=== PATIENT | male | born 1970 | race Caucasian/White ===

== ENCOUNTER 2020-11-08 08:16 | Emergency (ER) | payer OTHER, SELFPAY ==
--- NOTE | 2020-11-08 | XRR_ITS ---
[facility] Final Radiology Report Call: [phone] assistance Online chat: [email or web address] Name: DANNI AGUILERA Age: 49Years M Date: 11/08/2020 SSN: -- : 1970 Study: XR CHEST 2 VIEWS Requesting Physician: Becca Smith Images: 2 Add?l Studies: Provided Clinical History: PROCEDURE INFORMATION: Exam: XR Chest Exam date and time: 11/08/2020 9:07 AM Age: 49 years old Clinical indication: Other: Irregular heart rhythem; Patient HX: C/O of irregular heart rhythms. HX of afib TECHNIQUE: Imaging protocol: XR of the chest. Views: Frontal and lateral upright, 2 views. COMPARISON: No relevant prior studies available. FINDINGS: Lungs: The lungs are clear bilaterally. The pulmonary vasculature is normal. Pleural spaces: No pleural effusion. No pneumothorax. Heart/Mediastinum: The heart is normal in size and contour. Bones/joints: No acute chest wall abnormality identified. IMPRESSION: No acute cardiopulmonary abnormality identified. Thank you for allowing us to participate in the care of your patient. Dictated and Authenticated by: Lyle Norman MD 11/08/2020 1:29 PM Central Time ([place] & [place]) [facility]
--- NOTE | 2020-11-08 08:28 | ECG_ITS ---
[facility] Test Date: 2020-11-08 Pat Name: Tony Malone Department: Room: Gender: Male Charger Tester: : 1970 Requested By: Becca Smith Order Number: [id number] Luz MD: William Dias M.D. Measurements Intervals [place] Rate: 70 P: 56 WY: 199 QRS: -49 QRSD: 119 T: 37 QT: 402 QTc: 434 Interpretive Statements SINUS RHYTHM WITH SINUS ARRHYTHMIA LEFT ANTERIOR FASCICULAR BLOCK [QRS AXIS <= -45, QR IN I, RS IN II] No previous ECG available for comparison Electronically Signed On 11-08-2020 18:09:50 CDT by William Dias M.D. [id number] f
[2020-11-08 08:56] VITALS: BP 136/94; PULSE 60; RESP 16; TEMP 36.6; O2SAT 95; BMI 29.9
[2020-11-08 09:02] VITALS: BMI 29.1
--- NOTE | 2020-11-08 10:28 | ECG_ITS ---
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 Measurements Intervals [place] Rate: 71 P: 54 MO: 205 QRS: -52 QRSD: 120 T: 30 QT: 419 QTc: 458 Interpretive Statements SINUS RHYTHM WITH OCCASIONAL ECTOPIC PREMATURE COMPLEXES LEFT ANTERIOR FASCICULAR BLOCK [QRS AXIS <= -45, QR IN I, RS IN II] No previous ECG available for comparison Electronically Signed On 11-08-2020 18:12:13 CDT by William Dias M.D. [id number] f
[2020-11-08 11:00] VITALS: BP 123/94; PULSE 71; RESP 16; O2SAT 97
--- NOTE | 2020-11-08 11:16 | PC.NURSE ---
Addendum entered by Janna Browning RN 11/08/20 11:17: arrived to room at 1115. Original Note: pt arrived to room at 1015
[2020-11-08 11:20] LABS: Basophils # 0.1 10^3/uL (0.0-0.1); Basophils % 0.8 %; Eosinophils # 0.2 10^3/uL (0.0-0.8); Eosinophils % 3.3 %; Hematocrit 45.1 % (42.0-52.0); Lymphocytes # 2.3 10^3/uL (0.8-4.8); Mean Corpuscular HGB Conc 33.3 g/dL (30.0-36.0); Mean Corpuscular Hemoglobin 28.8 pg (28.0-34.0); Mean Corpuscular Volume 86.7 fL (80-94); Mean Platelet Volume 10.2 fL (7.4-10.4); Monocytes # 0.4 10^3/uL (0.2-0.9); Monocytes % 5.6 %; Nucleated Red Blood Cells % 0 %; Platelet Count 206 10^3/cmm (130-400); Red Cell Distribution Width 11.6 % (12.1-15.1); White Blood Count 6.3 10^3/uL (4.0-10.0)
--- NOTE | 2020-11-08 11:20 | W.ED.ARRPALP ---
HPI - Arrhythmia/Palpitations General: Chief Complaint: Arrhythmia/Palpitations Stated Complaint: Irregular Heart Rhythms Time Seen by Provider: 11/08/20 11:10 Source: patient Mode of arrival: ambulatory Limitations: no limitations History of Present Illness: HPI narrative: Patient is a 49-year-old male with a long history of atrial fibrillation and hypertension for which he takes losartan, diltiazem, Procardia, and an aspirin. He presents to the emergency department with a sensation of his heart fluttering. Started yesterday intermittently and and it became more persistent overnight. Symptoms have subsided a little now. He states that this is unusual for him and he wants to have it evaluated. He denies any chest pain, dizziness, lightheadedness, shortness of breath, leg swelling. He is not taking any rdob-wuw-ghcakvr medications. MD complaint: palpitations and atrial fibrillation Onset (ago): day(s) (1) Duration: intermittent Severity: mild Context: occurred during rest Arrhythmia history: atrial fibrillation Associated symptoms: Deny anxiety, cough, diaphoresis, muscle cramps, nausea, paresthesias, pre-syncope, sense of impending doom, short of breath, syncope or vomiting Review of Systems General: Reports: 10 or more systems reviewed and unremarkable except in HPI and below Const: Denies: diaphoresis Card: Denies: syncope or pre-syncope GI: Denies: nausea or vomiting Musc: Denies: muscle cramps Psych: Denies: anxiety Physical Exam Const: COMMON NORMALS: no acute distress, average body habitus, patient oriented x3, no limitations, healthy appearing, alert and well nourished HENMT: COMMON NORMALS: normocephalic, atraumatic and moist oral mucous membranes HEAD & SCALP: normocephalic and atraumatic Neck/C-Spine: COMMON NORMALS: no meningeal signs and no JVD Chest: COMMONS NORMALS: normal inspection of the chest and normal palpation of entire chest wall Resp: COMMON NORMALS: normal respiratory effort, No retractions, No use of accessory muscles, clear to auscultation bilaterally and percussion normal AUSCULTATION: clear to auscultation bilaterally PERCUSSION: percussion normal Cardio: COMMON NORMALS: no JVD, regular rate, regular rhythm, S1 normal heart sound present, S2 normal heart sound present, No gallops present (Cardio), No clicks present (Cardio), No murmurs present (Cardio), No rub (Cardio) and Peripheral pulses 2+ throughout RATE: regular rate RHYTHM: regular rhythm HEART SOUNDS: S1 normal heart sound present and S2 normal heart sound present PERIPHERAL PULSES: Peripheral pulses 2+ throughout GI: COMMON NORMALS: Normal to inspection, nondistended, normoactive bowel sounds present, Soft to palpation, non-tender, No hepatosplenomegaly present, no masses and no bruits PALPATION: Yes Soft to palpation and Yes No hepatosplenomegaly present Extremity: COMMON NORMALS: normal to inspection, full ROM, capillary refill normal, no calf tenderness and no pedal edema Neuro: COMMON NORMALS: patient oriented x3 SENSORIUM/ORIENTATION: Yes alert MENINGEAL SIGNS: Yes no meningeal signs Skin: COMMON NORMALS: no rashes or lesions noted, no wounds, turgor normal, no jaundice, no petechiae and no mottling GENERAL SKIN EXAM: no rashes or lesions noted and turgor normal Course Reevaluation(s): Reevaluation #1: Discussed his lab and imaging findings with him. Negative for acute findings. TSH normal. We will set him up with a 21-day event monitor and he will follow up with his primary care provider. He voiced understanding and is in agreement with the plan. Time: 12:38 Vital Signs: Vital signs: Vital Signs Temperature 98 F 11/08/20 08:56 Pulse Rate 73 11/08/20 12:00 Respiratory Rate 16 11/08/20 12:00 Blood Pressure 146/104 11/08/20 12:00 Pulse Oximetry 97 11/08/20 12:00 MDM - Arrhythmia/Palpitations MDM Narrative: Medical decision making narrative: 49-year-old male with a history of atrial fibrillation and hypertension. He presents to the emergency department with palpitations that started yesterday. Persisted until today, however evaluation in the emergency department is unremarkable. He is discharged home with a 21-day event monitor to see if there is need for intervention. Lab Data: Labs: Lab Results 11/08/20 11/08/20 11/08/20 Range/Units 11:12 11:12 11:12 WBC 6.3 (4.0-10.0) 10^3/ uL RBC 5.20 (4.1-5.3) 10^6/u L Hgb 15.0 (11.7-16.6) g/dL Hct 45.1 (42.0-52.0) % MCV 86.7 (80-94) fL MCH 28.8 (28.0-34.0) pg MCHC 33.3 (30.0-36.0) g/dL RDW 11.6 L (12.1-15.1) % Plt Count 206 (130-400) 10^3/c mm MPV 10.2 (7.4-10.4) fL Neut % (Auto) 54.0 % Lymph % (Auto) 36.0 % Monroe % (Auto) 5.6 % Eos % (Auto) 3.3 % Baso % (Auto) 0.8 % Neut # (Auto) 3.40 (1.8-7.7) 10^3/u L Lymph # (Auto) 2.3 (0.8-4.8) 10^3/u L Monroe # (Auto) 0.4 (0.2-0.9) 10^3/u L Eos # (Auto) 0.2 (0.0-0.8) 10^3/u L Baso # (Auto) 0.1 (0.0-0.1) 10^3/u L Nucleated RBC % (a uto) 0 % Nucleated RBCs # 0.0 /100WBC Sodium 135 L (136-145) mmol/L Potassium 4.1 (3.5-5.1) mmol/L Chloride 98 (98-107) mmol/L Carbon Dioxide 29 (22-29) mmol/L Anion Gap 12.1 (5-19) BUN 17 (6-20) mg/dL Creatinine 0.9 (0.7-1.2) mg/dL GFR Calculation 90.1 (90-130) mL/min Glucose 246 H (65-115) mg/dL Calculated Osmolal ity 290 (285-295) mOsm/k g Calcium 9.0 (8.5-10.5) mg/dL Magnesium 1.9 (1.7-2.3) mg/dL Total Bilirubin 0.5 (0.15-1.2) mg/dL AST 24 (0-40) U/L ALT 54 H (0-41) U/L Alkaline Phosphata se 58 (40-130) IU/L Troponin T Baselin e 8 (0-15) ng/L NT-Pro-B Natriuret Pep (0-125) pg/mL Total Protein 7.5 (6.6-8.7) g/dL Albumin 4.4 (3.5-5.2) g/dL Globulin 3.1 (1.3-4.6) g/dL TSH 0.88 (0.27-4.20) uIU/ mL 11/08/20 Range/Units 11:12 WBC (4.0-10.0) 10^3/ uL RBC (4.1-5.3) 10^6/u L Hgb (11.7-16.6) g/dL Hct (42.0-52.0) % MCV (80-94) fL MCH (28.0-34.0) pg MCHC (30.0-36.0) g/dL RDW (12.1-15.1) % Plt Count (130-400) 10^3/c mm MPV (7.4-10.4) fL Neut % (Auto) % Lymph % (Auto) % Monroe % (Auto) % Eos % (Auto) % Baso % (Auto) % Neut # (Auto) (1.8-7.7) 10^3/u L Lymph # (Auto) (0.8-4.8) 10^3/u L Monroe # (Auto) (0.2-0.9) 10^3/u L Eos # (Auto) (0.0-0.8) 10^3/u L Baso # (Auto) (0.0-0.1) 10^3/u L Nucleated RBC % (a uto) % Nucleated RBCs # /100WBC Sodium (136-145) mmol/L Potassium (3.5-5.1) mmol/L Chloride (98-107) mmol/L Carbon Dioxide (22-29) mmol/L Anion Gap (5-19) BUN (6-20) mg/dL Creatinine (0.7-1.2) mg/dL GFR Calculation (90-130) mL/min Glucose (65-115) mg/dL Calculated Osmolal ity (285-295) mOsm/k g Calcium (8.5-10.5) mg/dL Magnesium (1.7-2.3) mg/dL Total Bilirubin (0.15-1.2) mg/dL AST (0-40) U/L ALT (0-41) U/L Alkaline Phosphata se (40-130) IU/L Troponin T Baselin e (0-15) ng/L NT-Pro-B Natriuret Pep 48 (0-125) pg/mL Total Protein (6.6-8.7) g/dL Albumin (3.5-5.2) g/dL Globulin (1.3-4.6) g/dL TSH (0.27-4.20) uIU/ mL Imaging Data^: CXR: Attestation: I personally reviewed and interpreted this imaging study as follows: My impression: No acute findings. EKG Data^: EKG 1: Attestation: I personally reviewed and interpreted this EKG as follows: EKG interpretation date: 11/08/20 EKG interpretation time: 08:45 Prior EKG tracings: not available for review Interpretation: Sinus rhythm with sinus arrhythmia. Heart rates 70 bpm. Left anterior fascicular block. No ST changes. Discharge Plan Discharge Patient Disposition: Home Clinical Impression: Palpitations Condition: Stable Prescriptions: Continued losartan 50 mg tablet 50 mg PO BEDTIME RF: 0 sumatriptan succinate 100 mg tablet 100 mg PO PRN RF: 0 aspirin 81 mg Tablet,Delayed Release (Dr/Ec) 81 mg PO BEDTIME RF: 0 diltiazem HCl 120 mg capsule,extended release 24hr 120 mg PO BEDTIME RF: 0 Claritin 10 mg Tablet 10 mg PO BEDTIME RF: 0 Collagen Powder See Rx Instructions .ROUTE .COMPLEX RF: 0 Discharge Orders: Discharge ED (Routine); Ordered 11/08/20 Ordered By: Estefani Downey Referrals: Julio César Peguero MD [Physician] - 1-3 days Discharge Diet: Usual diet Discharge Activity: Increase activity as tolerated Patient Instructions: Palpitations (ED), Opioid Safety Activity Restrictions/Additional Instructions: Return for any new or worsening symptoms. Follow-up with your primary care provider within 3 days. You will be contacted to schedule an appointment to obtain the event monitor that monitors your heart rates. This may give us information to help manage your symptoms if there are significant abnormalities in your heart rhythm. Coding Level of Care Code ED Cisco Consultant for Chg Fwd Exam Comprehensive
[2020-11-08 12:00] VITALS: BP 146/104; PULSE 73; RESP 16; O2SAT 97
[2020-11-08 12:01] LABS: NT Pro B Type Natriuretic Pept 48 pg/mL (0-125)
[2020-11-08 12:02] LABS: Alanine Aminotransferase 54 U/L (0-41); Albumin Level 4.4 g/dL (3.5-5.2); Alkaline Phosphatase 58 IU/L (40-130); Anion Gap 12.1 (5-19); Aspartate Amino Transferase 24 U/L (0-40); Blood Urea Nitrogen 17 mg/dL (6-20); Carbon Dioxide 29 mmol/L (22-29); Chloride 98 mmol/L (98-107); Globulin 3.1 g/dL (1.3-4.6); Glomerular Filtration Rate 90.1 mL/min (90-130); Glucose 246 mg/dL (65-115); Magnesium 1.9 mg/dL (1.7-2.3); Osmolality Calculated 290 mOsm/kg (285-295); Potassium 4.1 mmol/L (3.5-5.1); Sodium 135 mmol/L (136-145); Thyroid Stimulating Hormone 0.88 uIU/mL (0.27-4.20); Total Bilirubin 0.5 mg/dL (0.15-1.2); Total Protein 7.5 g/dL (6.6-8.7)
[2020-11-08 12:25] LABS: Troponin(5th) Baseline 8 ng/L (0-15)
--- NOTE | 2020-11-08 15:25 | DCPLANNER ---
Addendum entered by Iris Warren 11/30/20 14:52: Patient had a follow up appointment scheduled for 11.23.20 with heart care for a 21 day event monitor - patient did attend appointment. Original Note: blood bank manager was asked to schedule a 21 day event monitor for patient. blood bank manager faxed order to heart care, will call for appointment information.
== END 2020-11-08 13:04 | disposition home or self-care (01) ==
PROVIDERS: Registered Nurse; Emergency Provider Family Medicine
DX: R00.2 Palpitations (principal); Z79.82 Long term (current) use of aspirin
CPT/HCPCS: 71046; 80053; 83735; 83880; 84443; 84484; 85025; 93005; 99284

== ENCOUNTER 2021-06-08 15:41 | Outpatient (CLI) | payer OTHER, SELFPAY ==
--- NOTE | 2021-06-08 15:59 | XR_ITS ---
WS: [id number] XR chest 2V* [id number] REASON FOR EXAM: COVID-19 INFECTION, 2 WEEKS AGO FINDINGS: Compared to the previous examination of 11/08/2020, there are linear and reticular opacities in the m id and lower left lung lung. Similar findings are seen on the right. There are also patchy areas of hazy density seen in the mid lungs bilaterally. No pleural effusions. Bony thorax intact. XR/XR chest 2V* [id number] IMPRESSION: Lung opacities of unknown chronicity. Findings are compatible with subacute pne umonitis.
== END 2021-06-08 15:42 | disposition home or self-care (01) ==
PROVIDERS: PCP Family Medicine; Visit Provider Family Medicine
DX: U07.1 COVID-19 (principal)
CPT/HCPCS: 71046

== ENCOUNTER 2022-02-24 21:16 | Emergency (ER) | payer OTHER, SELFPAY ==
[2022-02-24 21:44] VITALS: BP 120/75; PULSE 72; RESP 15; TEMP 36.8; O2SAT 95; BMI 27.0
[2022-02-24 22:27] VITALS: BP 125/86; PULSE 71; RESP 16; O2SAT 96
--- NOTE | 2022-02-24 22:34 | XRR_ITS ---
PROCEDURE INFORMATION: Exam: XR Left Ribs with PA Chest Exam date and time: 02/24/2022 10:48 PM Age: 51 years old Clinical indication: Injury or trauma; Fall; Rib area, left side; Blunt trauma; Additional info: Fall onto left anterior chest wall TECHNIQUE: Imaging protocol: Radiologic exam of the Left ribs with PA chest. Views: 3 views COMPARISON: CR XR chest 2V* [id number] 06/08/2021 4:00 PM FINDINGS: Lungs: Unremarkable. No consolidation. Pleural spaces: Unremarkable. No pleural effusion. No pneumothorax. Heart/Mediastinum: Unremarkable. No cardiomegaly. Bones/joints: Unremarkable. XR/XR ribs LT mn 3V w CXR1V [id number] IMPRESSION: No acute findings.
[2022-02-24] MEDS: ketorolac 60 mg/2 mL INJ IM (23:35)
[2022-02-24] MEDS: dexamethasone 10 mg/mL INJ 4 MG IM (23:37)
[2022-02-24 23:54] VITALS: BP 122/91; PULSE 64; RESP 16; O2SAT 98
--- NOTE | 2022-02-25 01:41 | W.ED.FALL ---
HPI - Fall General: Chief Complaint: Fall Stated Complaint: rib pain Time Seen by Provider: 02/24/22 22:20 History of Present Illness: Patient is in tonight for left anterior chest wall pain. He reports that approximately a week ago he had a leaf blower strapped on his back and he fell approximately a foot onto the ground flat onto his left side anterior chest wall. He reports it of course it was very sore; however, it was not until just a few days ago that is seem to worsen significantly. He denies any difficulty breathing, but states that it is painful to take a deep breath. Certain movements are painful palpation of the chest wall is painful. He has a handicap sign which he is required to lift on and that has been very difficult for him. Associated symptoms-after fall: Reports chest pain (Left-sided chest wall pain) Review of Systems Const: Denies: fever(s) or chills Card: Reports: chest pain (Left-sided chest wall pain); Denies: palpitations or irregular heart rhythm Resp: Reports: pain on inspiration; Denies: dyspnea, productive cough or non-productive cough Musc: Reports: other (Pain to the left side chest wall status post fall over a week ago) [facility] ED PFSH: Medical History Atrial fibrillation HTN (hypertension) Family History Mother Diabetes Hypertension Atrial fibrillation Father Diabetes Hypertension Cardiomyopathy Social History Smoking and tobacco status: former smoker Physical Exam Const: COMMON NORMALS: no acute distress, patient oriented x3 and alert Neck/C-Spine: COMMON NORMALS: no JVD Chest: OTHER: There is no soft tissue or obvious bony deformity appreciated to the anterior chest wall. Patient does have pain to palpation over the left anterior chest wall over his breast and nipple region. He seems to be the most tender above his breast towards the sternum noted in between the ribs. There is no obvious step-off or bony deformity appreciated. Palpation of the chest wall does reproduce pain complaint. Resp: COMMON NORMALS: normal respiratory effort, No use of accessory muscles and clear to auscultation bilaterally AUSCULTATION: clear to auscultation bilaterally Cardio: COMMON NORMALS: no JVD, regular rate, regular rhythm, S1 normal heart sound present, S2 normal heart sound present and No murmurs present (Cardio) RATE: regular rate RHYTHM: regular rhythm HEART SOUNDS: S1 normal heart sound present and S2 normal heart sound present Neuro: COMMON NORMALS: patient oriented x3 SENSORIUM/ORIENTATION: Yes alert Course Vital Signs: Vital signs: Vital Signs Temperature 98.2 F 02/24/22 21:44 Pulse Rate 64 02/24/22 23:54 Respiratory Rate 16 02/24/22 23:54 Blood Pressure 122/91 02/24/22 23:54 Pulse Oximetry 98 02/24/22 23:54 Oxygen Delivery Me thod 02/24/22 22:27 MDM - Fall Medical Decision Making Patient is in tonight status post fall a foot onto the ground on his left side anterior chest wall. This happened over a week ago. He reports that he was sore but was doing okay until a couple of days ago the pain increased tremendously. He reports that he has been having to lift his handicapped son and he is wondering if that is not what made the pain worse. Physical exam findings reveal tenderness to palpation left anterior chest wall that reproduces pain complaint. X-ray of the ribs and the chest show no acute findings. We will treat patient for costochondritis. Injection of Toradol and steroid provided tonight. Patient does not wish to have prescription for prednisone outpatient as he had to take a lot of steroids when he was COVID-positive and now he is struggling with diabetes. Advised him of conservative treatment at home follow-up with primary care provider. Return to the ER as needed for new or worsening symptoms Lab Data Radiology Impressions Ribs X-Ray 02/24/22 22:34 IMPRESSION: No acute findings. Discharge Plan Discharge Patient Disposition: Home Clinical Impression: Costochondritis, Contusion of rib on left side Condition: Stable Prescriptions: No Action aspirin 325 mg tablet 325 mg PO DAILY Qty: 90 3RF prednisone 20 mg tablet 20 mg PO DAILY Qty: 5 0RF Rx Instructions: take with food. cyclobenzaprine 10 mg tablet 10 mg PO TID Qty: 30 0RF diltiazem HCl 180 mg capsule,extended release 24hr 180 mg PO DIRECTED Qty: 120 3RF Rx Instructions: At bedtime and as needed for a-fib metoprolol succinate 25 mg tablet extended release 24 hr 25 mg PO DAILY Qty: 90 3RF losartan 50 mg tablet 50 mg PO BEDTIME sumatriptan succinate 100 mg tablet 100 mg PO PRN Claritin 10 mg Tablet 10 mg PO BEDTIME Collagen Powder See Rx Instructions .ROUTE .COMPLEX Rx Instructions: MIXES WITH A DRINK AND TAKES EVERY AM Discharge Orders: Discharge ED (Routine); Ordered 02/24/22 Ordered By: Karen Sarabia Referrals: Julio César Peguero MD [Primary Care Provider] - Discharge Diet: Usual diet Discharge Activity: Increase activity as tolerated Patient Instructions: Costochondritis - Adult Activity Restrictions/Additional Instructions: Take it easy over the next 3 to 5 days. I recommend conservative treatment at home including alternating warm and ice packs to the area to help with pain and inflammation. Starting tomorrow you can use ibuprofen every 8 hours to help with inflammation. Follow-up with your primary care provider if symptoms or not improving over the next 5 to 7 days. Return to the ER for any new or worsening symptoms. Coding Level of Care Code ED Food Safety Specialist for Fernando [employer]
== END 2022-02-24 23:48 | disposition home or self-care (01) ==
PROVIDERS: Emergency Provider Nurse Practitioner Family; PCP Family Medicine
DX: M94.0 Chondrocostal junction syndrome [Tietze] (principal); S20.212A Contusion of left front wall of thorax, initial encounter; Z79.82 Long term (current) use of aspirin; I10 Essential (primary) hypertension; Z87.891 Personal history of nicotine dependence; W18.39XA Other fall on same level, initial encounter
CPT/HCPCS: 71101; 96372; 99284; J1100; J1885

== ENCOUNTER → 2022-10-11 13:34 | Outpatient (BNVA) | payer OTHER, SELFPAY | PROVIDERS: PCP Family Medicine; Visit Provider Internal Medicine Cardiovascular Disease | DX: I48.91 Unspecified atrial fibrillation (principal); I10 Essential (primary) hypertension; Z87.891 Personal history of nicotine dependence; Z79.82 Long term (current) use of aspirin | CPT/HCPCS: 99213 ==

== ENCOUNTER → 2023-03-29 07:53 | Outpatient (BNVA) | payer OTHER, SELFPAY | PROVIDERS: PCP Family Medicine; Visit Provider Clinical Nurse Specialist Adult Health | DX: J01.40 Acute pansinusitis, unspecified (principal); Z51.81 Encounter for therapeutic drug level monitoring; E11.9 Type 2 diabetes mellitus without complications; Z13.220 Encounter for screening for lipoid disorders; E53.8 Deficiency of other specified B group vitamins; Z00.00 Encounter for general adult medical examination without abnormal findings; I10 Essential (primary) hypertension; I48.91 Unspecified atrial fibrillation | CPT/HCPCS: 80053; 80061; 82607; 83036; 85025; 87880 ==

== ENCOUNTER 2023-05-08 01:32 | Emergency (ER) | payer OTHER, SELFPAY ==
[2023-05-08 01:36] VITALS: BP 209/128; PULSE 79; RESP 16; TEMP 36.6; O2SAT 97; BMI 28.5
--- NOTE | 2023-05-08 01:48 | ECG_ITS ---
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 Measurements Intervals [place] Rate: 77 P: 59 WY: 220 QRS: -57 QRSD: 110 T: 45 QT: 413 QTc: 470 Interpretive Statements SINUS RHYTHM WITH FIRST DEGREE AV BLOCK PATTERN CONSISTENT WITH PULMONARY DISEASE LEFT ANTERIOR FASCICULAR BLOCK [QRS AXIS <= -45, QR IN I, RS IN II] Compared to ECG 11/08/2020 10:41:19 First degree AV block now present Electronically Signed On 05-08-2023 21:35:10 SOFTWARE ENGINEERING MANAGER by Alyssa Billings M.D. [id number]
[2023-05-08 01:51] LABS: Basophils # 0.1 10^3/uL (0.0-0.1); Basophils % 0.7 %; Eosinophils # 0.3 10^3/uL (0.0-0.8); Eosinophils % 3.9 %; Hematocrit 45.1 % (37-53); Lymphocytes # 3.7 10^3/uL (0.8-4.8); Lymphocytes % 42.1 %; Mean Corpuscular HGB Conc 34.4 g/dL (30-55); Mean Corpuscular Hemoglobin 29.4 pg (27-33); Mean Corpuscular Volume 85.6 fl (82-101); Mean Platelet Volume 9.5 fL (7.4-10.4); Monocytes # 0.6 10^3/uL (0.2-0.9); Monocytes % 6.3 %; Neutrophils % 46.8 %; Nucleated Red Blood Cells % 0 %; Platelet Count 240 10^3/cmm (157-399); Red Blood Count 5.27 10^6/uL (3.85-5.65); Red Cell Distribution Width 11.7 % (12.1-15.1); White Blood Count 8.75 10^3/uL (3.29-11.43)
--- NOTE | 2023-05-08 02:00 | W.ED.GENADLT ---
HPI - General Adult General: Chief complaint: General Medical Stated complaint: high bp Time Seen by Provider: 05/08/23 01:47 History of Present Illness: 52-year-old male presents emergency department complaints of having a throbbing type feeling to his generalized head. He states that he got up this morning checked his blood pressure and noticed that it was significantly elevated. He denies chest pain dizziness or lightheaded feeling. He denies nausea vomiting or known injury or trauma. Associated symptoms: Reports headache(s) Review of Systems General: Reports: 10 or more systems reviewed and unremarkable except in HPI and below Neuro: Reports: headache(s) [facility] ED PFSH: Medical History Atrial fibrillation HTN (hypertension) Family History Mother Diabetes Hypertension Atrial fibrillation Father Diabetes Hypertension Cardiomyopathy Social History Smoking and tobacco/nicotine status: former use of tobacco/nicotine Alcohol intake: never Substance/Drug Use: never Physical Exam Narrative: EXAM NARRATIVE: Constitutional: the patient appears well nourished and with normal development. Vital signs reviewed as documented. HENMT: Normocephalic, atraumatic. Extermal ears with normal appearance without drainage. Nose without drainage, normal appearance. Mucus membranes moist. Neck is supple, No jugular venous distension, trachea is midline, no appreciable carotid bruits. No lymphadenopathy. No meningeal signs. Flexion, extension and lateral rotation is without pain. Eyes: Pupils are equal, round, reactive to light and accommodation. No scleral icterus. Extra-ocular movement are intact. Thorax is symmetrical and with equal rise and fall with respirations. Resp: Lungs are clear to auscultation. No wheezes, rales, crackles or ronchi at present. Cardio: Regular rate and rhythm. Positive S1, S2. No appreciable murmurs, rubs or gallops. GI: Abdominal exam reveals normal bowel sounds to all quadrants. No organomegaly. No obvious palpable masses noted. No hepatomegally appreciated. Soft, nontender to palpation. Extremity: Extremities are non-edematous and both femoral and pedal pulses are 2+ and equal bilaterally. Moves all extremities well, sensation in all extremities. Neuro: Alert and oriented x4, person, place, time and situation. Cranial nerves II through XII are grossly intact, there is no focal neurological deficits that I can appreciate at present. Motor strength in the upper and lower extremities are equal and bilateral 5/5. Psych: Cooperative, calm, normal thought process, appropriate judgment. Skin: No lesions, rashes. No gross abnormalities noted. Back: Symmetrical, no obvious deformity, No CVA tenderness Course Vital Signs: Vital signs: Vital Signs Temperature 97.8 F 05/08/23 04:33 Pulse Rate 74 05/08/23 04:33 Respiratory Rate 16 05/08/23 04:33 Blood Pressure 134/85 05/08/23 04:33 Pulse Oximetry 94 05/08/23 04:33 Oxygen Delivery Me thod Room Air 05/08/23 01:36 MDM - General Adult Medical Decision Making Physical exam completed and documented, I will obtain a CBC, CMP cardiac enzymes and serial EKGs. I will provide the patient hydralazine for his blood pressure control and will reevaluate. Differential Diagnosis Medication noncompliance, uncontrolled idiopathic hypertension, substance abuse, Medical Records I reviewed the patient's medical records. Lab Data I reviewed the patient's lab results. 05/08/23 01:44 05/08/23 01:44 Laboratory Results WBC 8.75 10^3/uL (3.29-11.43) 05/08/23 01:44 RBC 5.27 10^6/uL (3.85-5.65) 05/08/23 01:44 Hgb 15.50 g/dL (11.27-16.99) 05/08/23 01:44 Hct 45.1 % (37-53) 05/08/23 01:44 MCV 85.6 fl (82-101) 05/08/23 01:44 MCH 29.4 pg (27-33) 05/08/23 01:44 MCHC 34.4 g/dL (30-55) 05/08/23 01:44 RDW 11.7 % (12.1-15.1) L 05/08/23 01:44 Plt Count 240 10^3/cmm (157-399) 05/08/23 01:44 MPV 9.5 fL (7.4-10.4) 05/08/23 01:44 Neut % (Auto) 46.8 % 05/08/23 01:44 Lymph % (Auto) 42.1 % 05/08/23 01:44 [place] % (Auto) 6.3 % 05/08/23 01:44 Eos % (Auto) 3.9 % 05/08/23 01:44 Baso % (Auto) 0.7 % 05/08/23 01:44 Neut # (Auto) 4.10 10^3/uL (1.8-7.7) 05/08/23 01:44 Lymph # (Auto) 3.7 10^3/uL (0.8-4.8) 05/08/23 01:44 [place] # (Auto) 0.6 10^3/uL (0.2-0.9) 05/08/23 01:44 Eos # (Auto) 0.3 10^3/uL (0.0-0.8) 05/08/23 01:44 Baso # (Auto) 0.1 10^3/uL (0.0-0.1) 05/08/23 01:44 Nucleated RBC % (auto) 0 % 05/08/23 01:44 Nucleated RBCs # 0.0 /100WBC 05/08/23 01:44 Sodium 137 mmol/L (136-145) 05/08/23 01:44 Potassium 3.8 mmol/L (3.5-5.1) 05/08/23 01:44 Chloride 99 mmol/L (98-107) 05/08/23 01:44 Carbon Dioxide 27 mmol/L (22-29) 05/08/23 01:44 Anion Gap 14.8 (5-19) 05/08/23 01:44 BUN 14 mg/dL (6-20) 05/08/23 01:44 Creatinine 1.0 mg/dL (0.7-1.2) 05/08/23 01:44 GFR Calculation 78.8 mL/min (90-130) L 05/08/23 01:44 Glucose 169 mg/dL (65-115) H 05/08/23 01:44 Calculated Osmolality 288 mOsm/kg (285-295) 05/08/23 01:44 Calcium 10.0 mg/dL (8.5-10.5) 05/08/23 01:44 Total Bilirubin 0.5 mg/dL (0.15-1.2) 05/08/23 01:44 AST 36 U/L (0-40) 05/08/23 01:44 ALT 77 U/L (0-41) H 05/08/23 01:44 Alkaline Phosphatase 59 U/L (40-130) 05/08/23 01:44 Troponin T Baseline 7 ng/L (0-15) 05/08/23 01:44 Troponin T 120 Minute 6.63 ng/L (0-15) 05/08/23 03:43 Delta Troponin T -0.37 ABS# (0-10) L 05/08/23 03:43 Total Protein 8.2 g/dL (6.6-8.7) 05/08/23 01:44 Albumin 4.6 g/dL (3.5-5.2) 05/08/23 01:44 Globulin 3.6 g/dL (1.3-4.6) 05/08/23 01:44 Urine Color Yellow (Yellow) 05/08/23 02:11 Urine Appearance Clear (CLEAR) 05/08/23 02:11 Urine pH 6 (5-7) 05/08/23 02:11 Ur Specific [place] 1.010 (1.005-1.030) 05/08/23 02:11 Urine Protein Neg (Negative) 05/08/23 02:11 Urine Glucose (UA) Trace (Normal) H 05/08/23 02:11 Urine Ketones Negative (Negative) 05/08/23 02:11 Urine Blood Neg (Negative) 05/08/23 02:11 Urine Nitrate Negative (Negative) 05/08/23 02:11 Urine Bilirubin Neg (Negative) 05/08/23 02:11 Urine Urobilinogen Neg mg/dL (Negative) 05/08/23 02:11 Ur Leukocyte Esterase Negative (Negative) 05/08/23 02:11 Urine Opiates Screen Negative ng/mL (Negative) 05/08/23 02:11 Ur Barbiturates Screen Negative ng/mL (Negative) 05/08/23 02:11 Ur Phencyclidine Scrn Negative ng/mL (Negative) 05/08/23 02:11 Ur Amphetamines Screen Negative ng/mL (Negative) 05/08/23 02:11 U Benzodiazepines Scrn Negative ng/mL (Negative) 05/08/23 02:11 Urine Cocaine Screen Negative ng/mL (Negative) 05/08/23 02:11 U Marijuana (THC) Screen Negative ng/mL (Negative) 05/08/23 02:11 No radiology studies performed this visit Discharge Plan Discharge Patient Disposition: Home Clinical Impression: HTN (hypertension) Qualifiers: Hypertension type: essential hypertension Qualified Code(s): I10 - Essential (primary) hypertension Condition: Stable Prescriptions: No Action aspirin 325 mg tablet 325 mg PO DAILY Qty: 90 3RF losartan 50 mg tablet 25 mg PO BEDTIME azithromycin 250 mg tablet See Rx Instructions PO .COMPLEX Qty: 6 0RF Rx Instructions: For 250 mg dose pack: take 500 mg today (day 1), then 250 mg for 4 days (days 2-5) PO albuterol sulfate [ProAir HFA] 90 mcg/actuation HFA aerosol inhaler 2 puff inhalation Q6H PRN (Reason: shortness of breath or wheezing) Qty: 8.5 6RF cefdinir 300 mg capsule 300 mg PO BID Qty: 14 0RF atorvastatin 10 mg tablet 10 mg PO DAILY Qty: 90 3RF Claritin 10 mg tablet 10 mg PO BEDTIME Qty: 90 3RF metformin 500 mg tablet 1,000 mg PO BID Qty: 120 12RF diltiazem HCl 180 mg capsule,extended release 24hr 180 mg PO DAILY Qty: 90 3RF benzonatate 100 mg capsule 100 mg PO TID PRN (Reason: cough) Qty: 45 0RF clonidine HCl 0.1 mg tablet 0.1 mg PO Q8H PRN (Reason: hypertensive emergency) Qty: 30 0RF Rx Instructions: Take 1 tab PO Q8hrs PRN if BP >160/110. sumatriptan succinate 100 mg tablet 100 mg PO PRN Discharge Orders: Discharge ED (Routine); Ordered 05/08/23 Ordered By: Jerry Marin Referrals: Julio César Peguero MD [Primary Care Provider] - Discharge Diet: Advance as tolerated Discharge Activity: Resume usual activity Patient Instructions: Opioid Safety, Pain Management Activity Restrictions/Additional Instructions: Activity Restrictions/Additional Instructions: Thank you for choosing [facility] for your healthcare needs today. Please realize that you were seen in the Emergency Department and that we are providing you with an emergency medical screening exam and this may not be a complete and all inclusive of all the testing and or medical work-up that you may need to determine your ailment or severity of your illness. It is very important that you follow-up as instructed with your Primary care provider or Specialist for additional evaluation and to discuss your medical treatment plan. You may return to the Emergency Department should you have concerns or if your condition changes or worsens in any way. Coding Level of Care Code ED Executive Casino Host for Fernando Staples
[2023-05-08 02:06] LABS: Alanine Aminotransferase 77 U/L (0-41); Albumin Level 4.6 g/dL (3.5-5.2); Alkaline Phosphatase 59 U/L (40-130); Anion Gap 14.8 (5-19); Aspartate Amino Transferase 36 U/L (0-40); Blood Urea Nitrogen 14 mg/dL (6-20); Carbon Dioxide 27 mmol/L (22-29); Chloride 99 mmol/L (98-107); Globulin 3.6 g/dL (1.3-4.6); Glomerular Filtration Rate 78.8 mL/min (90-130); Glucose 169 mg/dL (65-115); Osmolality Calculated 288 mOsm/kg (285-295); Potassium 3.8 mmol/L (3.5-5.1); Sodium 137 mmol/L (136-145); Total Bilirubin 0.5 mg/dL (0.15-1.2); Total Protein 8.2 g/dL (6.6-8.7)
[2023-05-08] MEDS: hyDRALAzine 20 mg/mL INJ 1 mL 10 MG IVP (02:11)
[2023-05-08 02:14] LABS: Add Urine Microscopic? NO; Charge for UA Resulting for Rev
[2023-05-08 02:18] LABS: Troponin(5th) Baseline 7 ng/L (0-15)
[2023-05-08 02:19] LABS: Bilirubin Urine Neg (Negative); Blood Urine Neg (Negative); Glucose Urine UA Trace (Normal); Ketones Urine Negative (Negative); Leukocyte Esterase Urine Negative (Negative); Nitrate Urine Negative (Negative); Protein Urine Neg (Negative); Urine Appearance Clear (CLEAR); Urine Color Yellow (Yellow); Urobilinogen Urine Neg (Negative); pH Urine 6 (5-7)
[2023-05-08 02:25] LABS: Amphetamines Screen Urine Negative (Negative); Barbiturates Screen Urine Negative (Negative); Benzodiazepines Screen Urine Negative (Negative); Cocaine Screen Urine Negative (Negative); Opiate Screen Urine Negative (Negative); PCP Screen Urine Negative (Negative); THC Screen Urine Negative (Negative)
[2023-05-08 03:07] VITALS: BP 134/85; PULSE 74; RESP 16; O2SAT 94
[2023-05-08 04:07] LABS: Troponin 5 2HR 6.63 ng/L (0-15)
[2023-05-08 04:09] LABS: Troponin 5 2HR Delta -0.37 ABS# (0-10)
[2023-05-08 04:33] VITALS: BP 134/85; PULSE 74; RESP 16; TEMP 36.6; O2SAT 94
--- NOTE | 2023-05-15 14:04 | W.ED.GENADLT ---
HPI - General Adult General: Chief complaint: General Medical Stated complaint: high bp Time Seen by Provider: 05/08/23 01:47 [facility] ED PFSH: Medical History (Updated 05/10/23 @ 18:40 by Julio César Peguero MD) Diabetes mellitus type 2, controlled Atrial fibrillation HTN (hypertension) Surgical History S/P appendectomy Around age 17 Family History Mother Diabetes Hypertension Atrial fibrillation Father Diabetes Hypertension Cardiomyopathy Social History Smoking and tobacco/nicotine status: former use of tobacco/nicotine Alcohol intake: never Substance/Drug Use: never Course Vital Signs: Vital signs: Vital Signs Temperature 97.8 F 05/08/23 04:33 Pulse Rate 74 05/08/23 04:33 Respiratory Rate 16 05/08/23 04:33 Blood Pressure 134/85 05/08/23 04:33 Pulse Oximetry 94 05/08/23 04:33 Oxygen Delivery Me thod Room Air 05/08/23 01:36 MDM - General Adult Lab Data 05/08/23 01:44 05/08/23 01:44 Laboratory Results WBC 8.75 10^3/uL (3.29-11.43) 05/08/23 01:44 RBC 5.27 10^6/uL (3.85-5.65) 05/08/23 01:44 Hgb 15.50 g/dL (11.27-16.99) 05/08/23 01:44 Hct 45.1 % (37-53) 05/08/23 01:44 MCV 85.6 fl (82-101) 05/08/23 01:44 MCH 29.4 pg (27-33) 05/08/23 01:44 MCHC 34.4 g/dL (30-55) 05/08/23 01:44 RDW 11.7 % (12.1-15.1) L 05/08/23 01:44 Plt Count 240 10^3/cmm (157-399) 05/08/23 01:44 MPV 9.5 fL (7.4-10.4) 05/08/23 01:44 Neut % (Auto) 46.8 % 05/08/23 01:44 Lymph % (Auto) 42.1 % 05/08/23 01:44 [place] % (Auto) 6.3 % 05/08/23 01:44 Eos % (Auto) 3.9 % 05/08/23 01:44 Baso % (Auto) 0.7 % 05/08/23 01:44 Neut # (Auto) 4.10 10^3/uL (1.8-7.7) 05/08/23 01:44 Lymph # (Auto) 3.7 10^3/uL (0.8-4.8) 05/08/23 01:44 [place] # (Auto) 0.6 10^3/uL (0.2-0.9) 05/08/23 01:44 Eos # (Auto) 0.3 10^3/uL (0.0-0.8) 05/08/23 01:44 Baso # (Auto) 0.1 10^3/uL (0.0-0.1) 05/08/23 01:44 Nucleated RBC % (auto) 0 % 05/08/23 01:44 Nucleated RBCs # 0.0 /100WBC 05/08/23 01:44 Sodium 137 mmol/L (136-145) 05/08/23 01:44 Potassium 3.8 mmol/L (3.5-5.1) 05/08/23 01:44 Chloride 99 mmol/L (98-107) 05/08/23 01:44 Carbon Dioxide 27 mmol/L (22-29) 05/08/23 01:44 Anion Gap 14.8 (5-19) 05/08/23 01:44 BUN 14 mg/dL (6-20) 05/08/23 01:44 Creatinine 1.0 mg/dL (0.7-1.2) 05/08/23 01:44 GFR Calculation 78.8 mL/min (90-130) L 05/08/23 01:44 Glucose 169 mg/dL (65-115) H 05/08/23 01:44 Calculated Osmolality 288 mOsm/kg (285-295) 05/08/23 01:44 Calcium 10.0 mg/dL (8.5-10.5) 05/08/23 01:44 Total Bilirubin 0.5 mg/dL (0.15-1.2) 05/08/23 01:44 AST 36 U/L (0-40) 05/08/23 01:44 ALT 77 U/L (0-41) H 05/08/23 01:44 Alkaline Phosphatase 59 U/L (40-130) 05/08/23 01:44 Troponin T Baseline 7 ng/L (0-15) 05/08/23 01:44 Troponin T 120 Minute 6.63 ng/L (0-15) 05/08/23 03:43 Delta Troponin T -0.37 ABS# (0-10) L 05/08/23 03:43 Total Protein 8.2 g/dL (6.6-8.7) 05/08/23 01:44 Albumin 4.6 g/dL (3.5-5.2) 05/08/23 01:44 Globulin 3.6 g/dL (1.3-4.6) 05/08/23 01:44 Urine Color Yellow (Yellow) 05/08/23 02:11 Urine Appearance Clear (CLEAR) 05/08/23 02:11 Urine pH 6 (5-7) 05/08/23 02:11 Ur Specific [place] 1.010 (1.005-1.030) 05/08/23 02:11 Urine Protein Neg (Negative) 05/08/23 02:11 Urine Glucose (UA) Trace (Normal) H 05/08/23 02:11 Urine Ketones Negative (Negative) 05/08/23 02:11 Urine Blood Neg (Negative) 05/08/23 02:11 Urine Nitrate Negative (Negative) 05/08/23 02:11 Urine Bilirubin Neg (Negative) 05/08/23 02:11 Urine Urobilinogen Neg mg/dL (Negative) 05/08/23 02:11 Ur Leukocyte Esterase Negative (Negative) 05/08/23 02:11 Urine Opiates Screen Negative ng/mL (Negative) 05/08/23 02:11 Ur Barbiturates Screen Negative ng/mL (Negative) 05/08/23 02:11 Ur Phencyclidine Scrn Negative ng/mL (Negative) 05/08/23 02:11 Ur Amphetamines Screen Negative ng/mL (Negative) 05/08/23 02:11 U Benzodiazepines Scrn Negative ng/mL (Negative) 05/08/23 02:11 Urine Cocaine Screen Negative ng/mL (Negative) 05/08/23 02:11 U Marijuana (THC) Screen Negative ng/mL (Negative) 05/08/23 02:11 Discharge Plan Discharge Patient Disposition: Home Clinical Impression: HTN (hypertension) Qualifiers: Hypertension type: essential hypertension Qualified Code(s): I10 - Essential (primary) hypertension Condition: Stable Prescriptions: No Action aspirin 325 mg tablet 325 mg PO DAILY Qty: 90 3RF losartan 50 mg tablet 25 mg PO BEDTIME albuterol sulfate [ProAir HFA] 90 mcg/actuation HFA aerosol inhaler 2 puff inhalation Q6H PRN (Reason: shortness of breath or wheezing) Qty: 8.5 6RF atorvastatin 10 mg tablet 10 mg PO DAILY Qty: 90 3RF Claritin 10 mg tablet 10 mg PO BEDTIME Qty: 90 3RF metformin 500 mg tablet 1,000 mg PO BID Qty: 120 12RF diltiazem HCl 180 mg capsule,extended release 24hr 180 mg PO DAILY Qty: 90 3RF clonidine HCl 0.1 mg tablet 0.1 mg PO Q8H PRN (Reason: hypertensive emergency) Qty: 30 0RF Rx Instructions: Take 1 tab PO Q8hrs PRN if BP >160/110. sumatriptan succinate 100 mg tablet 100 mg PO PRN Discharge Orders: Discharge ED (Routine); Ordered 05/08/23 Ordered By: Jerry Marin Referrals: Julio César Peguero MD [Primary Care Provider] - Discharge Diet: Advance as tolerated Discharge Activity: Resume usual activity Patient Instructions: Opioid Safety, Pain Management Activity Restrictions/Additional Instructions: Activity Restrictions/Additional Instructions: Thank you for choosing [facility] for your healthcare needs today. Please realize that you were seen in the Emergency Department and that we are providing you with an emergency medical screening exam and this may not be a complete and all inclusive of all the testing and or medical work-up that you may need to determine your ailment or severity of your illness. It is very important that you follow-up as instructed with your Primary care provider or Specialist for additional evaluation and to discuss your medical treatment plan. You may return to the Emergency Department should you have concerns or if your condition changes or worsens in any way. Coding Level of Care Code ED [employer]ol Teacher for Fernando Staples
== END 2023-05-08 04:34 | disposition home or self-care (01) ==
PROVIDERS: Emergency Provider Internal Medicine; PCP Family Medicine
DX: I10 Essential (primary) hypertension (principal); Z79.82 Long term (current) use of aspirin; Z79.84 Long term (current) use of oral hypoglycemic drugs; Z87.891 Personal history of nicotine dependence
CPT/HCPCS: 36415; 80053; 80306; 81003; 84484; 85025; 93005; 96374; 99284; J0360

== ENCOUNTER 2023-09-30 18:19 | Emergency (ER) | payer OTHER, SELFPAY ==
[2023-09-30 18:23] VITALS: BP 153/103; PULSE 89; RESP 14; TEMP 36.3; O2SAT 97
--- NOTE | 2023-09-30 19:09 | CTR_ITS ---
PROCEDURE INFORMATION: Exam: CT Cervical Spine Without Contrast Exam date and time: 09/30/2023 7:21 PM Age: 52 years old Clinical indication: Injury or trauma; Other: Blunt trauma; Patient HX: Patient struck at base of occiput from a tree branch that got caught on a zero turn mower and broke away. ; Additional info: Head neck inj TECHNIQUE: Imaging protocol: Computed tomography of the cervical spine without contrast. Radiation optimization: All CT scans at this facility use at least one of these dose optimization techniques: automated exposure control; mA and/or kV adjustment per patient size (includes targeted exams where dose is matched to clinical indication); or iterative reconstruction. COMPARISON: CT head wo con* [id number] 09/30/2023 7:19 PM RADIATION DOSE METRICS: Total DLP (mGy-cm): 670.47 FINDINGS: Bones/joints: No evidence of acute fracture or subluxation of the cervical spine. The craniocervical junction including the atlantoaxial and atlantooccipital articulations are intact. C2-C3: No central or foraminal stenosis. C3-C4: Uncovertebral hypertrophy results in mild left-sided foraminal stenosis. No central stenosis. C4-C5: No central or foraminal stenosis. C5-C6: Uncovertebral hypertrophy results in moderate left-sided foraminal stenosis. Posterior disc osteophyte complex results in borderline narrowing of the midline thecal sac. C6-C7: No central or foraminal stenosis. C7-T1: No central or foraminal stenosis. Lungs: The visualized lung apices are clear. Soft tissues: No gross soft tissue abnormality. No significant prevertebral edema. No evidence of fluid collection or hematoma. CT/CT cervical spin wo con* [id number] IMPRESSION: 1. No evidence of fracture or subluxation of the cervical spine.
--- NOTE | 2023-09-30 19:09 | CTR_ITS ---
PROCEDURE INFORMATION: Exam: CT Head Without Contrast Exam date and time: 09/30/2023 7:19 PM Age: 52 years old Clinical indication: Injury or trauma; Blunt trauma (contusions or hematomas); Patient HX: Patient struck at base of occiput from a tree branch that got caught on a zero turn mower and broke away. ; Additional info: Head/neck inj TECHNIQUE: Imaging protocol: Computed tomography of the head without contrast. Radiation optimization: All CT scans at this facility use at least one of these dose optimization techniques: automated exposure control; mA and/or kV adjustment per patient size (includes targeted exams where dose is matched to clinical indication); or iterative reconstruction. COMPARISON: No relevant prior studies available. RADIATION DOSE METRICS: Total DLP (mGy-cm): 1088.68 FINDINGS: Brain: No evidence of intra-axial or extra-axial hemorrhage. No mass effect or midline shift. [place] Fuente-white differentiation is maintained. Basilar cisterns are patent. Cerebral ventricles: No hydrocephalus. Paranasal sinuses: The visualized paranasal sinuses are well aerated. Mastoid air cells: The visualized mastoids and middle ears are clear. Bones: Unremarkable. No acute fracture. Soft tissues: No gross soft tissue abnormality. CT/CT head wo con* [id number] IMPRESSION: 1. No acute intracranial abnormality.
--- NOTE | 2023-09-30 20:36 | W.ED.NECK ---
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 In doing so, he was struck by a branch of a fall and limb in the back of the head at the base of the skull. He has some scratch castro in his upper back as well. He notes that he was knocked to the ground, and was dazed for an incident. He does not believe he lost consciousness. He says that the jolt from hitting the ground naida him, and he is experiencing some right shoulder discomfort, as well as some generalized aches regarding this. No vision changes. No mental status changes. No vomiting. Minimal headache. Associated symptoms: Denies nausea Review of Systems Eyes: Denies: change in vision or blurry vision Card: Denies: chest pain Resp: Denies: dyspnea or productive cough GI: Denies: nausea or vomiting Musc: Reports: neck pain and joint pain (generalized) [facility] ED PFSH: Medical History Diabetes mellitus type 2, controlled Atrial fibrillation HTN (hypertension) Surgical History S/P appendectomy Around age 17 Family History Mother Diabetes Hypertension Atrial fibrillation Father Diabetes Hypertension Cardiomyopathy Social History Smoking and tobacco/nicotine status: former use of tobacco/nicotine Alcohol intake: never Substance/Drug Use: never Physical Exam Const: COMMON NORMALS: no acute distress GENERAL APPEARANCE: cooperative; not ill appearing and not frail appearing HENMT: COMMON NORMALS: normocephalic, atraumatic and Normal external nose present HEAD & SCALP: normocephalic and atraumatic FACE & SINUS: normal facial exam and face symmetric NOSE: Normal external nose present Eye: COMMON NORMALS: Equal, round and reactive pupils present and EOMs intact bilaterally PUPIL: Yes Equal, round and reactive pupils present Neck/C-Spine: GENERAL: Yes trachea midline Chest: CHEST: Yes Symmetrical chest wall rise Resp: COMMON NORMALS: normal respiratory effort, No retractions and No use of accessory muscles Cardio: COMMON NORMALS: regular rate and regular rhythm RATE: regular rate RHYTHM: regular rhythm Neuro: JANELL COMA SCALE: document GCS findings Janell coma scale eye opening: Spontaneous Janell coma scale verbal response: Orientated Janell coma scale motor response: Obey commands Janell coma scale total score: 15 CRANIAL NERVES: Yes CN normal except as noted SENSORY EXAM: Yes extremities (intact) Psych: COMMON NORMALS: speech normal SPEECH: Yes normal speech Skin: NARRATIVE SKIN EXAM: Small abrasion to the back, between scapulae. Course Vital Signs: Vital signs: Vital Signs Temperature 97.3 F L 09/30/23 18:23 Pulse Rate 85 09/30/23 20:55 Respiratory Rate 18 09/30/23 20:55 Blood Pressure 129/89 09/30/23 20:55 Pulse Oximetry 93 09/30/23 20:55 MDM - Neck Pain/Injury Medical Decision Making Head and cervical spine CTs are negative. The patient does not get symptomatic with turning of the head. No dizziness or ataxia. No vision changes. Offered pain medication, but he declined. He feels somewhat improved. He will be allowed discharge to return for any new or worsening symptoms. Lab Data Radiology Impressions Cervical Spine CT 09/30/23 19:09 IMPRESSION: 1. No evidence of fracture or subluxation of the cervical spine. Head CT 09/30/23 19:09 IMPRESSION: 1. No acute intracranial abnormality. All radiology interpretation(s) finalized by discharge Discharge Plan Discharge Patient Disposition: Home Clinical Impression: Whiplash injury to neck, Concussion Condition: Stable Prescriptions: No Action aspirin 325 mg tablet 325 mg PO DAILY Qty: 90 3RF albuterol sulfate [ProAir HFA] 90 mcg/actuation HFA aerosol inhaler 2 puff inhalation Q6H PRN (Reason: shortness of breath or wheezing) Qty: 8.5 6RF diltiazem HCl 180 mg capsule,extended release 24hr 180 mg PO DAILY Qty: 90 3RF clonidine HCl 0.1 mg tablet 0.1 mg PO Q8H PRN (Reason: hypertensive emergency) Qty: 30 0RF Rx Instructions: Take 1 tab PO Q8hrs PRN if BP >160/110. Claritin 10 mg tablet 10 mg PO BEDTIME Qty: 90 3RF atorvastatin 10 mg tablet 10 mg PO DAILY Qty: 90 3RF metformin 500 mg tablet See Rx Instructions .ROUTE .COMPLEX Qty: 360 3RF Dose Instruction: TAKE 2 TABLETS BY MOUTH TWICE DAILY Rx Instructions: TAKE 2 TABLETS BY MOUTH TWICE DAILY losartan 50 mg tablet See Rx Instructions .ROUTE .COMPLEX Qty: 90 2RF Dose Instruction: TAKE 1 TABLET BY MOUTH AT BEDTIME Rx Instructions: TAKE 1 TABLET BY MOUTH AT BEDTIME sumatriptan succinate 100 mg tablet 100 mg PO PRN Discharge Orders: Discharge ED (Routine); Ordered 09/30/23 Ordered By: Flaco Childers Referrals: Julio César Peguero MD [Primary Care Provider] - 1-3 days Patient Instructions: Cervical Strain (ED), Concussion (ED), Opioid Safety, Pain Management Activity Restrictions/Additional Instructions: Return for change in mental status, worsening headache, vision changes, vomiting, any other concerning symptoms. See your doctor this week. Coding Level of Care Code ED Screening Unit Registered Nurse for Fernando Staples
[2023-09-30 20:55] VITALS: BP 129/89; PULSE 85; RESP 18; O2SAT 93
== END 2023-09-30 20:53 | disposition home or self-care (01) ==
PROVIDERS: Emergency Provider Emergency Medicine; PCP Family Medicine
DX: S13.4XXA Sprain of ligaments of cervical spine, initial encounter (principal); S06.0XAA Concussion with loss of consciousness status unknown, initial encounter; Z79.82 Long term (current) use of aspirin; Z79.84 Long term (current) use of oral hypoglycemic drugs; E11.9 Type 2 diabetes mellitus without complications; I10 Essential (primary) hypertension; Z87.891 Personal history of nicotine dependence; W20.8XXA Other cause of strike by thrown, projected or falling object, initial encounter
CPT/HCPCS: 70450; 72125; 99284

== ENCOUNTER → 2023-11-05 08:17 | Outpatient (BNVA) | payer OTHER, SELFPAY | PROVIDERS: PCP Family Medicine; Visit Provider Family Medicine | DX: Z51.81 Encounter for therapeutic drug level monitoring (principal); E11.9 Type 2 diabetes mellitus without complications | CPT/HCPCS: 80053; 83036; 85025 ==